=== PATIENT | male | born 1970 | race Hispanic/Latino ===

== ENCOUNTER 2018-09-11 08:09 | Outpatient (CLI) | payer OTHER ==
--- NOTE | 2018-09-11 08:24 | RAD ---
Chest 2 views HISTORY: Dyspnea. COMPARISON: 02/24/2013. FINDINGS: Cardiac silhouette and pulmonary vasculature are unremarkable. Mediastinum is midline. No c onfluent airspace consolidation, pneumothorax, or pleural fluid are apparent. IMPRESSION: No active cardiopulmonary abnormalities are demonstrated.
== END 2018-09-11 08:10 | disposition home or self-care (01) ==
LOC: RAD 08:09
PROVIDERS: ATTEND Internal Medicine Critical Care Medicine
DX: R06.00 Dyspnea, unspecified (principal)
CPT/HCPCS: 71046

== ENCOUNTER 2018-10-09 00:53 | Emergency (ER) | payer OTHER ==
[2018-10-09] MEDS ORDERED: predniSONE 20 MG TAB ONE (01:34)
--- NOTE | 2018-10-09 07:30 | RAD ---
EXAM: Single view of the chest HISTORY: Cough and shortness of breath COMPARISON: 09/11/2018 FINDINGS: Single view of the chest shows a normal sized cardiomediastinal silhouette. There is no abdias dence of consolidation, mass, or pleural effusion. The bones are unremarkable. IMPRESSION: No evidence of acute cardiopulmonary disease
== END 2018-10-09 03:33 | disposition home or self-care (01) ==
LOC: ERS 00:53
DX: J45.901 Unspecified asthma with (acute) exacerbation (principal); E11.9 Type 2 diabetes mellitus without complications; I10 Essential (primary) hypertension; Z79.84 Long term (current) use of oral hypoglycemic drugs; Z79.899 Other long term (current) drug therapy; Z79.51 Long term (current) use of inhaled steroids
CPT/HCPCS: 71045; 94640; J7512; J7620